=== PATIENT | male | born 1960 | race Caucasian/White ===

== ENCOUNTER 2019-06-12 22:00 | Emergency (ER) | payer OTHER, MEDICARE ==
[~2019-06-12] VITALS: Ht 177.8 cm; Wt 86.2 kg
[~2019-06-12 22:00] MED LIST: CRUTCH3 USE; HYDACE5 PO; METH10 PO; NAPR500 PO; OXYC10TA19 PO; SULTRIDS PO
[2019-06-12] MEDS ORDERED: Augmentin 875-1 EACH PO (23:09)
== END 2019-06-13 | disposition home or self-care (01) ==
LOC: ER 22:00
DX: S41.152A Open bite of left upper arm, initial encounter (principal); W54.0XXA Bitten by dog, initial encounter; Z88.8 Allergy status to other drugs, medicaments and biological substances; Z79.899 Other long term (current) drug therapy; Z79.891 Long term (current) use of opiate analgesic; Z87.891 Personal history of nicotine dependence
CPT/HCPCS: 12002; 73060; 90471; 90714; 99283-25